=== PATIENT | female | born 1990 | race Caucasian/White ===

== ENCOUNTER 2022-07-05 11:32 | Outpatient (CLI) | payer OTHER, SELFPAY ==
[2022-07-05 22:13] LABS: Albumin* 4.4 g/dL (3.3-5.0); Chloride* 105 mmol/L (96-114); Potassium* 4.2 mmol/L (3.6-5.1); Sodium* 138 mmol/L (135-149)
[2022-07-05 22:15] LABS: Cholesterol* 191 mg/dL (90-199)
[2022-07-05 22:16] LABS: Alanine Aminotransferase* 18 U/L (4-35); Alkaline Phosphatase* 43 U/L (40-150); Aspartate Amino Transferase* 21 U/L (12-35); Bilirubin Total* 0.8 mg/dL (0.1-1.5); Blood Urea Nitrogen* 14 mg/dL (5-24); Calcium* 9.1 mg/dL (8.4-10.6); Carbon Dioxide* 27 mmol/L (20-32); Creatinine* 0.9 mg/dL (0.5-1.5); Estimated Glomerular Filt Rate 89 ml/min; Glucose* 85 mg/dL (60-115); HDL Cholesterol* 73 mg/dL (>=50); LDL Cholesterol Calculated 104 mg/dL (<100); Total Protein* 7.2 g/dL (6.0-8.3); Triglycerides* 69 mg/dL (40-149)
== END 2022-07-05 11:33 | disposition home or self-care (01) ==
PROVIDERS: PCP Family Medicine; Visit Provider Family Medicine
DX: Z00.00 Encounter for general adult medical examination without abnormal findings (principal); Z13.6 Encounter for screening for cardiovascular disorders
CPT/HCPCS: 80053; 80061

== ENCOUNTER 2023-02-03 12:47 | Outpatient (CLI) | payer OTHER, SELFPAY ==
--- NOTE | 2023-02-03 13:00 | CRLHL7_ITS ---
For Patients: As a result of the Century Cures Act, medical imaging exams and procedure reports are released immediately into your electronic medical record. You may view this report before your referring provider. If you have questions, please contact your health care provider. INDICATION: First trimester scan, establish dates. TECHNIQUE: Real-time cerna-scale imaging of the pelvis was performed. FINDINGS: Sonographic imaging demonstrates a single living intrauterine gestation. The embryo demonstrates a regular cardiac rate measuring 168 beats per minute. The embryo`s crown-rump length measurement of 3.5 cm corresponds to a gestational age of 10 weeks 2 days with a sonographic due date of 08/30/2023 . There is a normal-appearing yolk sac. IMPRESSION: Normal first trimester OB ultrasound exam. Gestational age calculated at 10 weeks 2 days with a sonographic due date of 08/30/2023 . Dictated by Ana Billy MD @ 02/04/2023 6:42:33 AM (Electronically Signed)
== END 2023-02-03 12:48 | disposition home or self-care (01) ==
PROVIDERS: PCP Family Medicine; Visit Provider Advanced Practice Midwife
DX: Z34.91 Encounter for supervision of normal pregnancy, unspecified, first trimester (principal); Z3A.10 10 weeks gestation of pregnancy
CPT/HCPCS: 76801; 86592; 86703; 86762; 86787; 86803; 86850; 86900; 86901; 87086; 87340

== ENCOUNTER 2023-02-03 14:50 | Outpatient (CLI) | payer OTHER, SELFPAY | END 2023-02-03 14:51 | disposition home or self-care (01) | PROVIDERS: PCP Family Medicine; Referring Provider Family Medicine; Visit Provider Advanced Practice Midwife | DX: Z34.91 Encounter for supervision of normal pregnancy, unspecified, first trimester (principal); Z3A.10 10 weeks gestation of pregnancy | CPT/HCPCS: 86592; 86703; 86762; 86787; 86803; 86850; 86900; 86901; 87086; 87340 ==

== ENCOUNTER 2023-03-08 08:18 | Outpatient (CLI) | payer OTHER, SELFPAY | END 2023-03-08 08:19 | disposition home or self-care (01) | LOC: NFLDREF 08:19 | PROVIDERS: PCP Family Medicine; Visit Provider Advanced Practice Midwife | DX: N39.0 Urinary tract infection, site not specified (principal) | CPT/HCPCS: 87086 ==

== ENCOUNTER 2023-04-15 09:06 | Outpatient (CLI) | payer OTHER, SELFPAY ==
--- NOTE | 2023-04-15 09:15 | CRLHL7_ITS ---
For Patients: As a result of the Century Cures Act, medical imaging exams and procedure reports are released immediately into your electronic medical record. You may view this report before your referring provider. If you have questions, please contact your health care provider. INDICATION: Evaluate anatomy. COMPARISON: 02/03/2023 TECHNIQUE: Real time cerna scale imaging of the fetus was performed as well as color Doppler analysis of the umbilical vessels. FINDINGS: Sonographic imaging demonstrates a single living intrauterine gestation. Fetus demonstrates a regular cardiac rate of 149 beats per minute. Fetus has a variable position. The placenta lies anteriorly without evidence of placenta previa. The edge of the placenta is located 8.7 cm from the internal cervical os. Amniotic fluid volume appears normal. Single deepest vertical pocket: 4.4 cm. The cervix is closed and measures 3.1 cm in length. The composite ultrasound gestational age is calculated at 19 weeks 6 days with an estimated sonographic due date of 09/03/2023. The estimated weight is 328 grams which lies at the 39th %. The following biometric measurements were obtained: Biparietal diameter: 4.5 cm/19 weeks 3 days 22nd% Head circumference: 17.5 cm/20 weeks 0 days 37th% Abdominal circumference: 15.3 cm/20 weeks 4 days 58th% Femur length: 3.1 cm/19 weeks 4 days 21st% The HC/AC ratio measures: 1.14 range (1.08-1.26) On anatomic survey, there is a normal appearance of the cerebral ventricles, cavum septi pellucidi, cisterna magna and cerebellum. Normal nose and lips. Incomplete visualization of the profile due to position. The cervical, thoracic and lumbar spine are well visualized and appear normal. There is a normal four-chamber heart view and the left and right ventricular outflow tracts appear normal. The diaphragm and stomach appear normal. The kidneys and bladder also appear normal. There is a normal three-vessel cord and cord insertion site. The four extremities appear normal. IMPRESSION: [facility] clinical and sonographic dating. Incomplete visualization of the profile due to position. Remainder of the anatomic survey normal. Short-term follow-up recommended. Dictated by Cain Galvez MD @ 04/15/2023 2:42:00 PM (Electronically Signed)
== END 2023-04-15 09:07 | disposition home or self-care (01) ==
LOC: US 09:07
PROVIDERS: PCP Family Medicine; Visit Provider Advanced Practice Midwife
DX: Z34.92 Encounter for supervision of normal pregnancy, unspecified, second trimester (principal); Z3A.19 19 weeks gestation of pregnancy
CPT/HCPCS: 76805

== ENCOUNTER 2023-04-29 07:06 | Outpatient (CLI) | payer OTHER, SELFPAY ==
--- NOTE | 2023-04-29 07:15 | CRLHL7_ITS ---
For Patients: As a result of the Century Cures Act, medical imaging exams and procedure reports are released immediately into your electronic medical record. You may view this report before your referring provider. If you have questions, please contact your health care provider. HISTORY: Complete anatomic survey. COMPARISON: Ob ultrasound from 04/15/2023. TECHNIQUE: Ultrasound examination of the is performed with transabdominal technique. FINDINGS: A single intrauterine gestation is seen in breech presentation with regular cardiac activity at 141 beats per minute. The placenta is anterior and is free of the cervical os. The placental grade is 0 and the amniotic fluid volume is normal. Single deepest vertical pocket: Normal at 5.0 centimeters cm. The cervix is nondilated and normal in length at 4.2 centimeters. The left and right ventricular outflow tracts face, nose, and lips are normal in appearance. IMPRESSION: Single intrauterine gestation in breech presentation with regular cardiac activity. facial structures normal in appearance, completing the anatomic survey. Dictated by Matt Muir MD @ 05/02/2023 10:36:41 PM (Electronically Signed)
== END 2023-04-29 07:07 | disposition home or self-care (01) ==
PROVIDERS: PCP Family Medicine; Visit Provider Advanced Practice Midwife
DX: Z34.90 Encounter for supervision of normal pregnancy, unspecified, unspecified trimester (principal)
CPT/HCPCS: 76816

== ENCOUNTER 2023-06-14 10:15 | Outpatient (CLI) | payer OTHER, SELFPAY | END 2023-06-14 10:16 | disposition home or self-care (01) | LOC: NFLDREF 06-19 05:33 | PROVIDERS: PCP Family Medicine; Referring Provider Family Medicine; Visit Provider Advanced Practice Midwife | DX: Z34.90 Encounter for supervision of normal pregnancy, unspecified, unspecified trimester (principal) | CPT/HCPCS: 86592 ==

== ENCOUNTER 2023-06-17 10:23 | Outpatient (CLI) | payer OTHER, SELFPAY ==
[2023-06-17 12:52] LABS: Bacterial Vaginosis* NEGATIVE (No Detected); Candida glab/krus NOT DETECTED (No Detected); Candida species DETECTED (No Detected); Trichomonas vaginalis NOT DETECTED (No Detected)
== END 2023-06-17 10:24 | disposition home or self-care (01) ==
LOC: NFLDREF 10:23
PROVIDERS: PCP Family Medicine; Visit Provider Advanced Practice Midwife
DX: N89.8 Other specified noninflammatory disorders of vagina (principal); R30.0 Dysuria
CPT/HCPCS: 81513; 87086; 87481; 87661

== ENCOUNTER 2023-08-04 10:33 | Outpatient (CLI) | payer OTHER, SELFPAY ==
[2023-08-05 12:16] LABS: Strep B DNA Probe Negative (Negative)
[2023-08-05 12:42] LABS: Strep B Susceptibility Needed? No
== END 2023-08-04 10:34 | disposition home or self-care (01) ==
LOC: NFLDREF 10:33
PROVIDERS: PCP Family Medicine; Visit Provider Advanced Practice Midwife
DX: Z34.93 Encounter for supervision of normal pregnancy, unspecified, third trimester (principal)
CPT/HCPCS: 87081; 87653

== ENCOUNTER 2023-09-06 12:38 | Inpatient (IN) | payer OTHER, SELFPAY ==
[2023-09-06] VITALS (14 sets, daily range): BP systolic 102–124; BP diastolic 57–70; PULSE 67–92; RESP 16–18; TEMP 36.6–36.9; O2SAT 97; BMI 34.2
--- NOTE | 2023-09-06 12:36 | P.LDBA_ITS ---
Subjective History of Present Illness Date Seen: 09/06/23 Narrative: Lexi is being admitted to Labor and Delivery for labor. She is a 32 year old at 40.5 weeks gestation. This morning her contractions began around 0800 and have gotten progressively more uncomfortable. She denies signs of ROM, did pass a mucus plug and had small amount of pink discharge at that time. She is planning a waterbirth. Her full history and physical was dictated by BRITT Curry CNM on 08/12/2023. Please see this for details. Specific Issues/Plans : Zachary H&P by BRITT Curry CNM on 08/12/2023 1. Hx of Preeclampsia Taking baby ASA 2. Hx of PPH with last delivery from retained membranes consider IV access, AMTSL and TXA, prefers expectant management 3. Murmur at first OB visit no Hx of cardiac issues If symptoms develop, recommend cardiac follow-up 4. Hx macrosomic baby 9#9oz at 41 6/7 weeks, no complications with delivery 5. Varicella non-immune Recommend vaccine 6. Symptomatic UTI 03/08 Macrobid BID x 5 days 7. Anxiety/Depression Hx of difficult mood but not diagnosed 05/13. Elevated SUJEY/PHQ, elects to start medication; Zoloft 25 mg rx sent 06/10/23: PHQ 2; SUJEY 4 Covid: initial series 2020 Flu: Tdap: 06/17/23 RSV: OB - Problem Based A/P Additional Plan (1) Spontaneous onset of labor: Status: Acute (2) Post-dates : Status: Acute Plan Assessment:?? at 40.6 weeks gestation?? GBS negative? Patient is coping well with challenges of labor.?? Labor type: Spontaneous, Early labor? Category 2 FHR pattern.?Minimal variability, + Accels, no decels. complicated by: Hx of Preeclampsia, Hx of PPH with last delivery from retained membranes, Murmur at first OB visit Hx macrosomic baby, Varicella non-immune, Anxiety/Depression Hx of difficult mood without diagnosis. Plan:?? * ?Admit to L & D? * IV access: Consider placement if patient is agreeable, prefers expectant management for AMTSL. * Monitoring per policy: Continuous until reactive NST then may switch to intermittent monitoring? * Candidate for analgesia of choice.? Planning unmedicated for pain management * Desires waterbirth.? Consent signed and Hep C negative * Expectant management at this time, vaginal exam deferred at this time. She was 3cm yesterday in clinic. * Patient encouraged to reposition and ambulate to promote physiologic labor and . * Patient desires waterbirth * Anticipate ? Delivery/Labor/Induction Plan Plan: expectant management OB Exam Physical Exam Vital signs: Pulse BP Pulse Ox 72 124/65 97 09/06/23 12:19 09/06/23 12:19 09/06/23 12:12 Narrative: Vitals Reviewed Constitutional:? Alert and oriented x3 HEENT:? Normocephalic, atraumatic Neck:? Supple Lungs:? Clear to auscultation bilaterally Heart:? Regular rate and rhythm, no murmur, rub or gallop Abdomen:? Soft, nontender, and gravid. Vertex by Henry's, confirmed with cervical exam. Extremities:? No edema or erythema Cervix: deferred at this time NST: 130 bpm/minimal then moderate variability, poorly traced, will have RN adjust and continue to monitor until reactive NST obtained. 4-5 min contractions Detailed Labor and Delivery Exam Patient Gravid: Yes
[2023-09-06 13:31] LABS: Basophils Percent Auto 0.2 % (0.0-3.0); Eosinophils Percent Auto 0.2 % (0.0-7.0); Hematocrit 37.3 % (33.0-51.0); Hemoglobin* 12.4 gm/dL (12.0-16.0); Immature Granulocytes Pct Auto 0.7 %; Mean Corpuscular HGB Conc 33 gm/dL (32-36); Mean Corpuscular Hemoglobin 29 pg (26-34); Mean Corpuscular Volume 88 fL (80-100); Monocytes Percent Auto 7.9 % (0.0-11.0); Platelet Count* 172 K/uL (140-440); RDW Coefficient of Variation % 14.1 % (11.5-15.5); Red Blood Count 4.25 m/uL (4.00-5.20); Slide Review Reflex No; White Blood Count* 12.15 K/uL (4.50-11.00)
[2023-09-06] MEDS: OXYTOCIN 30 unit/500 ML in NS 30 UNIT/500 ML BAG 300 UNIT IVPB (16:31)
[2023-09-06] MEDS: miSOPROStoL 800 MCG/4 TABLET PR (16:36)
--- NOTE | 2023-09-06 17:07 | W.PM.OBVAGDE ---
OB Procedure Vag Delivery Mother Details Mother Details: Lexi is a 32 year-old, 3, Para 2, admitted on 09/06/23 at 40.5 Days gestation for labor. She began alanna at home around 0800 today. : 3 Para: 3 Weeks Gestation: 40.5 Admission Date: 09/06/23 Additional Details Amniotic Membrane Status: SROM Amniotic Membrane Rupture Date: 09/06/23 Amniotic Membrane Rupture Time: 16:15 Amniotic Membrane Fluid Description: Clear Analgesia/Anesthesia Type: None Waterbirth: Yes Pitcoin: Yes (for AMTSL) Labor Onset: 08:00 Complete: 16:18 Pushin:18 Heart: heart tones during second stage were not monitored due to the short duration of pushing. Prior to pushing intermittent monitoring was reassuring with no audible decelerations heard. Delivery Details Delivery Date: 09/06/23 Delivery Time: 16:21 Route of delivery: Gender: Male Infant Viability: Alive; Heart Rate Present Position at Delivery: OA Delivery Details: 32?y.o G3 now P3 ?at 40.5 weeks.? Lexi arrived to the unit with painful contractions since 0800 this morning. She had a cervical exam in the clinic the day prior and decision was made to not check her cervix on admission as no change in her plan of care would occur as a result. Around 1600 she was feeling very strong contractions and desired an exam. She was 9cm, 100%, 0 station with bulging bag. The waterbirth tub was filled and she entered the tub soon after. She had SROM for clear fluid around 1615 and shortly after began pushing. She was assumed complete with pushing at 1618. She pushed effectively, sitting upright in tub and squatting, at 1621 she delivered the head. There was a shoulder dystocia recognized, maneuvers performed included lunge forward and [place] resulting in delivery of the body 50 seconds later. Baby was vigorous immediately after and handed to the mother to hold skin to skin on her chest. ?? ? Spontaneous vaginal delivery at 1621 of?a viable?male infant.??Delivered in vertex OA position.??Shoulder dystocia occurred for 50 seconds, resolved with lunge and [place]crew maneuver. ? Spontaneous cry noted.??Infant placed on maternal chest.??Cord?was clamped and cut after a 5+ minute delay.??Nose and mouth were bulb suctioned.? Shoulder dystocia: yes? Nuchal cord: no? Meconium stained?fluid: no? Water : yes? ? ? 8 at 1 minute and 8 at 5 minutes.? ? Placenta delivered spontaneously and?complete?at 1634 with a?3 vessel?cord.?? Bleeding controlled with fundal massage, Pitocin?and Cytotec were given for AMTSL.?There was brisk bleeding noted when Lexi was in the tub after 5 minute delay of cord clamping. Cord was clamped and she moved to the bed. There was some large clots at that time. Advised patient she would benefit from IV Pitocin she agreed and that was started, gentle traction of the cord and placenta then delivered complete at 1634 and appeared intact large clot delivered with the placenta as well. Moderate amount of bright red bleeding noted after delivery of placenta discussed with patient and decision made to give Cytotec as well. Bleeding then was well controlled and fundus was firm. ? Mother was stable after delivery.? required some respiratory support approximately 15 minutes after , was initially doing well. ? Lacerations:? ?1st degree laceration, not bleeding, not repaired with shared decision making. ? ? Bleeding?post delivery?was: heavy at first, now minimal. ?The fundus was firm to palpation.? Blood loss: 1600?mL.? Blood loss measurement type: 1100 QBL?500 EBL?in Tub ? Sponge,?lap?and needles counts are correct.? Mother and were stable after delivery.? 1 Minute Interval Total Score: 8 5 Minute Interval Total Score: 8 Additional Details Shoulder Dystocia: Yes Placenta Delivery Time: 16:34 Placental Delivery Description: Spontaneous Procedure Done: Global Blood Loss: 1,600 Laceration: Perineal - 1st Degree (not repaired) Blood Loss Measurement Type: QBL Bakri Used: No Sponge/Need Count Correct: Yes Event Summary Status: Mother was stable after delivery. Pediatric SECURITY DEVELOPER at bedside evaluating infant at this time. Disposition: floor
[2023-09-07 00:30] VITALS: BP 116/72; PULSE 73; RESP 18; TEMP 36.6; O2SAT 99
[2023-09-07 04:30] VITALS: BP 115/74; PULSE 67; RESP 18; TEMP 36.6; O2SAT 97
[2023-09-07] MEDS: IBUPROFEN 600 MG TABLET PO (05:23)
[2023-09-07 07:14] LABS: Hemoglobin* 9.6 gm/dL (12.0-16.0)
--- NOTE | 2023-09-07 07:40 | PM.OBPNVD1 ---
OB - PN:Subj Subjective Time Seen by Provider: 07:40 Date Seen: 09/07/23 Interval history: Lexi is a 32 y.o. who was admitted to L & D for labor.? She had an NVD complicated by a PP hemorrhage and a shoulder dystocia? ? Narrative: The patient feels well.? The pain is well controlled with current medications.? She has no new complaints.? She is breast feeding and reports things are going well.? the patient has done well.? Vitals have been stable.? She has remained afebrile.? Has a good appetite, is tolerating a general diet.? She is voiding without difficulty.? She is passing gas and has had a bowel movement.? She is ambulating and denies any dizziness.? Has Small amount of rubra lochia.? OB - PN: Obj Exam Physical Exam: Vital signs: Temp Pulse Resp BP Pulse Ox O2 Del Method 97.8 F 67 18 115/74 97 Room Air 09/07/23 04:30 09/07/23 04:30 09/07/23 04:30 09/07/23 04:30 09/07/23 04:30 09/07/23 04:30 Narrative: GENERAL APPEARANCE:? normal affect, alert, no distress? MOOD:? appropriate? HEENT: normocephalic, neck supple, full ROM? CHEST:? Symmetrical chest wall movement.? Normal respiratory effort.? Clear to auscultation ? HEART:? regular rate and rhythm? ABDOMEN:? soft, non-tender. Uterine fundus is firm, at Umbilicus, Midline and is appropriate for the stage of recovery.? Bowel sounds present.? PERINEUM:? mild edema of the perineum, there is a 1st degree laceration that is healing well.? EXTREMITIES:? normal and no edema? OB - PN: Obj Data Labs Labs: Laboratory Results - last 24 hr 09/06/23 09/07/23 13:22 07:00 WBC 12.15 H RBC 4.25 Hgb 12.4 9.6 L Hct 37.3 MCV 88 MCH 29 MCHC 33 RDW Coeff of Camilo 14.1 Plt Count 172 Neut % (Auto) 78.0 H Lymph % (Auto) 13.0 L [place] % (Auto) 7.9 Eos % (Auto) 0.2 Baso % (Auto) 0.2 Neut # (Auto) 9.50 H Lymph # (Auto) 1.60 [place] # (Auto) 1.00 H Eos # (Auto) 0.00 Baso # (Auto) 0.00 Abs Immat Gran (auto) 0.10 Imm/Tot Granulo (auto) 0.7 Blood Type O Positive Antibody Screen NEGATIVE OB - PN: A/P Delivery Assessment and Plan (1) NVD (normal vaginal delivery): Status: Acute (2) state: Status: Acute (3) Encounter for care and examination of lactating mother: Status: Acute Plan day: 1 Plan: routine care Comments: G 3 P 3 status post uncomplicated NVD? ?? 1.? Continue route PP cares? 2.? .? May see if desired? 3.? Anticipate discharge home tomorrow? 4. Acute anemia.? Iron supplement ordered.
[2023-09-07 07:49] VITALS: BP 105/70; PULSE 71; RESP 16; TEMP 36.3; O2SAT 96
[2023-09-07] MEDS: DOCUSATE SODIUM 100 MG CAPSULE PO (10:29)
[2023-09-07] MEDS: FERROUS SULFATE 325 MG TABLET PO (10:29)
[2023-09-07 11:31] VITALS: BP 103/65; PULSE 67; RESP 16; TEMP 36.9; O2SAT 96
[2023-09-07 16:15] VITALS: BP 110/72; PULSE 70; RESP 16; TEMP 36.4; O2SAT 98
[2023-09-07 20:30] VITALS: BP 110/72; PULSE 72; RESP 16; TEMP 36.6
[2023-09-08 00:23] LABS: Rapid Plasma Reagin (RPR) Non Reactive (Non Reactive)
[2023-09-08] MEDS: IBUPROFEN 600 MG TABLET PO ×3 (02:54→17:39)
[2023-09-08] MEDS: ACETAMINOPHEN 500 MG TABLET 1000 MG PO ×3 (03:50→17:38)
[2023-09-08 03:52] VITALS: BP 100/69; PULSE 70; RESP 16; TEMP 36.6
--- NOTE | 2023-09-08 07:58 | PM.OBDSVD1 ---
DS: Providers Provider Date Seen: 09/08/23 Date of admission: 09/06/23 12:38 Primary care physician: Leticia Townsend DO Admitting Clinician: Alexei Mahmood CNM Attending Physician on discharge: Alexei Mahmood CNM Date of Discharge: 09/08/23 DS: Diagnosis Discharge Diagnosis (1) care following vaginal delivery: Status: Acute (2) Lactating mother: Status: Acute (3) Hemorrhoids: Status: Acute Problem details: Recommend plan for management , consider GI referral if not improving. (4) SUJEY (generalized anxiety disorder): Status: Acute Exam Narrative: Exam Narrative: GENERAL APPEARANCE:? normal affect, alert, no distress? MOOD:? appropriate? CHEST:? clear to auscultation and percussion? HEART:? regular rate and rhythm? ABDOMEN:? soft, non-tender the uterine fundus is U/2 and is appropriate for the stage of recovery.? PERINEUM:? mild edema of the perineum, there is a 1st degree that is healing well.? EXTREMITIES:? normal and no edema? Patient has no complaints? No active bleeding?? Doing well? She is requesting discharge home.? Const: Vital Signs, click to edit/add: Vital Signs - 24 hr 09/07/23 11:31 09/07/23 16:15 09/07/23 20:30 Temperature 98.4 F 97.5 F L 97.8 F Pulse Rate [Blood Pressure Cuff] 67 70 72 Respiratory Rate 16 16 16 Blood Pressure [Ri ght Arm] 103/65 110/72 110/72 Pulse Oximetry 96 98 Oxygen Delivery Me thod Room Air Room Air 09/08/23 03:52 Temperature 97.9 F Pulse Rate [Blood Pressure Cuff] 70 Respiratory Rate 16 Blood Pressure [Ri ght Arm] 100/69 Pulse Oximetry Oxygen Delivery Me thod Documenting provider has reviewed patient's vital signs: yes OB - DS: Summary Hospital Course Hospital Course: The patient is a 32 year old G 3 P 3 at 40.5 weeks gestation that was admitted to the Center on 09/06/23 for spontaneous labor. She had a vaginal delivery complicated by a shoulder dystocia and hemorrhage. She delivered a viable male . She is breast feeding. the patient has done well. Her pain is well controlled with current medications.? She has no new complaints.? Urinary output is adequate and she is voiding without difficulty.? Has a good appetite, is tolerating a general diet, is passing flatus, and has not had a bowel movement.? Has small amount of rubra lochia.? She is ambulating well.?She is and it is going good. Baby will remain admitted for IV antibiotics and O2 supplementation. She is anemic and was started on PO iron supplements. she states that she occasionally feels light headed when she first stands up but denies other symptoms. Educated on when to be seen if symptoms get worse or are not improving. She is on Sertraline for anxiety and feels good on her current dose. She is experincing lots of pain with her hemorrhoids. Encouraged good bowel regiment, tucks, and sitz baths. Peripartum Data Infant delivery method: Vaginal Laceration description: Perineal - 1st Degree Episiotomy description: None complications: other (PP hemorrhage) [place] Gender: Male Infant Discharge Plan: remains admitted at this time, anticipate discharge home when appropriate. Status at Discharge Functional status at discharge: independent ambulation Overall status at discharge: patient is progressing back to baseline Time Spent with Patient Time attestation: Total time spent providing and/or coordinating discharge services: Discharge Plan Discharge Disposition: Home, Self-Care Date of Admission: 09/06/23 12:38 Attending Provider on Discharge: Aracelis Hendrix Primary Care Provider: Leticia Townsend Condition: Stable Anticipated Discharge Date/Time: 09/08/23 20:00 Discharge Medications: New docusate sodium 100 mg Capsule 100 mg PO DAILY Qty: 120 0RF Rx Instructions: Take 1-2 tablets daily as needed for constipation. ferrous sulfate 325 mg (65 mg iron) Tablet 325 mg PO Q48H Qty: 90 0RF Rx Instructions: Take 1 tablets every other day. ibuprofen 600 mg Tablet 600 mg PO Q6H PRNQty: 30 0RF Continued 213-[id number] 6-dha 27 mg iron-1 mg -205 mg capsule 1 cap PO DAILY cyanocobalamin-liver extract Tablet 1 tab PO DAILY Adult 50 Plus Probiotic 4 billion cell capsule 4,000 mmu cells PO DAILY creatine monohydrate Powder 1 ea PO DAILY sertraline 25 mg tablet 25 mg PO QDAY Qty: 30 1RF Discontinued aspirin 81 mg tablet,delayed release (DR/EC) 81 mg PO QDAY Discharge Orders: Discharge Order (Routine); Ordered 09/08/23 Ordered By: Aracelis Hendrix Patient Education: OB Vaginal/Breast Feeding Additional Instructions: Discharge instructions were reviewed with the patient including signs and symptoms of infection and home going medications.? Lifting Restrictions: 20 pounds for 6? weeks? ?? Do not drive while taking narcotic pain meds.? Off Work or School for 6 weeks.? ?? Symptoms to report to doctor:? -Bleeding that saturates more than one pad per hour? -Passing clots larger than the size of a golf ball? -Pain not relieved by prescribed medication? -Fever above 100.4 degrees Fahrenheit? -A foul vaginal odor? -Difficulty in emotions, mood and functions? -Thoughts of hurting yourself and/or ? -Painful, reddened area in your breast? -Any drainage, redness or tenderness in your IV/epidural site? -Severe headache that doesn't improve after taking medications? -Changes in vision, including temporary loss of vision, blurred vision, and/or light sensitivity? -Upper abdominal pain (usually under ribs on the right side)? -Decrease in urination or painful, frequent urinating? -Chest pain? -Shortness of breath? -Tenderness or pain with redness and/swelling in the calf(s) of your leg? ?? Follow Up in clinic in 2 and 6 weeks.? ?? consultation services are available to all mothers and babies for the first year after delivery.? To make an appointment, please call [phone].? Activity Level: Activity as Tolerated Discharge Diet: Regular Follow Up Appointments: [facility] [Provider Group] Forms: [facility] Info Instructions
[2023-09-08] MEDS: DOCUSATE SODIUM 100 MG CAPSULE PO (08:26)
[2023-09-08 09:09] VITALS: BP 116/73; PULSE 70; RESP 18; O2SAT 98
== END 2023-09-08 18:45 | disposition home or self-care (01) | DRG 806 ==
LOC: OB OUT 12:38 → OB 12:38
PROVIDERS: Admitting Provider Advanced Practice Midwife; PCP Family Medicine; Visit Provider Advanced Practice Midwife
DX: O48.0 Post-term pregnancy (principal); D62 Acute posthemorrhagic anemia; Z37.0 Single live birth; O72.1 Other immediate postpartum hemorrhage; O90.81 Anemia of the puerperium; O87.2 Hemorrhoids in the puerperium; O66.0 Obstructed labor due to shoulder dystocia; O70.0 First degree perineal laceration during delivery; O99.344 Other mental disorders complicating childbirth; F32.A Depression, unspecified; F41.1 Generalized anxiety disorder; Z3A.40 40 weeks gestation of pregnancy
CPT/HCPCS: 36415; 85018; 85025; 86592; 86850; 86900; 86901; 88307; A9270

== ENCOUNTER 2024-03-22 06:07 | Day surgery (SDC) | payer OTHER, SELFPAY ==
[2024-03-22] VITALS (11 sets, daily range): BP systolic 103–116; BP diastolic 54–68; PULSE 43–57; RESP 14–16; TEMP 36.1–36.6; O2SAT 96–100; BMI 27.8
[2024-03-22] MEDS: SODIUM CHLORIDE 0.9 % (FLUSH) 10 ML SYRINGE IVF (06:25)
[2024-03-22] MEDS: LACTATED RINGERS 1000 ML 1,000 ML 100 ML IV (07:30)
[2024-03-22] MEDS: BUPIVACAINE LIPOSOME 133 MG/10 ML INJ INFILTRATI (07:53)
[2024-03-22] MEDS: BUPIVACAINE 0.5% 30 ML 10 ML INJECTION (07:53)
[2024-03-22] MEDS: CEFAZOLIN 2 GM INJ IVP (08:40)
--- NOTE | 2024-03-22 08:41 | P.GSOP_ITS ---
Operative Note Date of procedure: 03/22/24 Pre-op diagnosis: Internal hemorrhoids, grade 4 Post-op diagnosis: Same Type of Procedure: 3 quadrant hemorrhoidectomy Indications: Patient is a 33-year-old female with symptomatic internal hemorrhoids and associated perianal skin tags. Please see consultation note for full discussion. Risks and benefits of surgical excision was discussed at length with the patient. Risks included, but were not limited to: Bleeding, infection, risk of damage to surrounding structures, the small but real risk with any anal rectal procedure of damage to the anal muscles resulting in difficulty holding on to stool or gas and anesthesia complication. All questions and concerns were addressed with patient agreeing to proceed. Procedure Description: After discussing the risks and benefits of the procedure, the patient signed informed consent.? The operative site was marked and the patient was brought to the operating room and placed on the operating table in supine position.? Care was taken to pad the patient's pressure points.?? The patient was then given a spinal anesthetic by anesthesia.?? Patient was placed prone haja-knife, taking care to pad bilateral breasts and arms. The buttocks were taped laterally. A sterile prep and drape was done in the usual fashion. External examination, digital rectal examination, and anoscopic examination were all done and revealed significantly redundant internal hemorrhoidal tissue in the right lateral, posterior midline and anterior midline aspects of the anal canal with associated residual hemorrhoidal skin tags. Based on this assessment, plans were made for a 3-quadrant closed hemorrhoidectomy to encompass the aforementioned aspects of the anal canal. Attention was initially directed to the largest area of involvement and then went to the progressively smaller areas and all were handled in the same fashion. An elliptical incision was made with a needle tip electrocautery from the anoderm up into the anal canal just above the dentate line. Careful dissection of the hemorrhoid complex was done in the plane between the internal anal sphincter and the submucosal vascular plexus up to just above the dentate line in each quadrant described above. Having established the proper plane, the hemor rhoidal tissue was then excised with the Ligasure device and sent to Pathology for analysis. Care was taken to preserve mucosa for a tension-free closure. The internal sphincter fibers were visualized at the base of the wound and were intact. The wound was closed in a running locked manner starting at the apex (proximal aspect of elliptical excision) with 4-0 chromic suture, coming out to the anoderm and then running back up in a simple fashion and tying down at the apex. Hemostasis was excellent. The patient tolerated procedure well. There were no apparent complications. Instrument, sponge, and needle counts were correct at the end of the case. Findings: Redone internal hemorrhoidal tissue in associated perianal skin tacks. Three quadrant hemorrhoidectomy performed Anesthesia: MAC and spinal Surgeon: Anastacia Malone MD Estimated blood loss (mL): 5 Additional Specimen Information: Hemorrhoids Condition: stable Disposition: same day
--- NOTE | 2024-03-22 08:49 | W.ANESCHARGE ---
Anesthesia Charges Start Date/Time Anesthesia Start Date: 03/22/24 Anesthesia Start Time: 07:30 Stop Date/Time Anesthesia Stop Date: 03/22/24 Anesthesia Stop Time: 08:42
--- NOTE | 2024-03-22 08:57 | W.ANESCHARGE ---
Anesthesia Charges Start Date/Time Anesthesia Start Date: 03/22/24 Anesthesia Start Time: 07:30 Stop Date/Time Anesthesia Stop Date: 03/22/24 Anesthesia Stop Time: 08:42
[2024-03-22] MEDS: OXYCODONE 5 MG TABLET PO (09:36)
--- NOTE | 2024-03-22 09:51 | SUR.OPER ---
PATIENT QUESTIONS ANSWERED SATISFACTORILY PREOPERATIVELY. PATIENT BROUGHT TO OR #1 PER CART. Patient positioned prone on OR #1 bed. The perioperative team supported arms bilaterally on arm boards. Final approval of positioning by surgeon.
[2024-03-22] MEDS: ONDANSETRON 2 MG/ML inj 4 MG IVP (10:09)
== END 2024-03-22 10:11 | disposition home or self-care (01) ==
PROVIDERS: Visit Provider Surgery
PROC: (CPT 46260; principal; 2024-03-22 07:30)
DX: K64.3 Fourth degree hemorrhoids (principal); K64.4 Residual hemorrhoidal skin tags
CPT/HCPCS: 46260; 00902; 88304; A9270; C9290; J0665; J0690; J2250; J2405; J2704; J3010; J7120